=== PATIENT | male | born 1995 | race African-American/Black ===

== ENCOUNTER 2024-04-18 19:20 | Emergency (ER) | payer OTHER ==
[~2024-04-18] VITALS: Ht 190.5 cm; Wt 88.5 kg
[2024-04-18 20:59] VITALS: BP 133/90; TEMP 98.1; O2SAT 98
== END 2024-04-18 20:59 | disposition home or self-care (01) ==
LOC: ER 19:39
DX: S13.4XXA Sprain of ligaments of cervical spine, initial encounter (principal); M54.50 Low back pain, unspecified; V43.52XA Car driver injured in collision with other type car in traffic accident, initial encounter; Y93.89 Activity, other specified; Y92.488 Other paved roadways as the place of occurrence of the external cause; Y99.8 Other external cause status